=== PATIENT | male | born 1995 | race Caucasian/White ===

== ENCOUNTER 2017-11-06 23:30 | Emergency (ER) | payer OTHER, BC ==
[2017-11-07] MEDS ORDERED: HYDROcodone/ACETAMIN 5-325 MG* 1 TAB PO ONE (00:40)
[2017-11-07] MEDS ORDERED: Ketorolac INJ* 30 MG/ML 1 ML VIAL IM ONE (00:41)
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
[2017-11-07 01:19] VITALS: BP 108/56
== END 2017-11-07 01:17 | disposition home or self-care (01) ==
LOC: ED 23:30
DX: T23.002A Burn of unspecified degree of left hand, unspecified site, initial encounter (principal); X19.XXXA Contact with other heat and hot substances, initial encounter; Y92.9 Unspecified place or not applicable
CPT/HCPCS: 96372; 99282; J1885